=== PATIENT | female | born 1970 | race Caucasian/White ===

== ENCOUNTER → 2016-04-12 | Outpatient (CLI) | payer BC ==
[~2016-04-12] MED LIST: MULT-506 PO; NRT1/35 PO
== END | disposition home or self-care (01) ==
LOC: C.LABSPEC 18:15
PROVIDERS: ATTEND Obstetrics & Gynecology
DX: L29.8 Other pruritus (principal)

== ENCOUNTER → 2016-06-24 | Outpatient (CLI) | payer BC | END | disposition home or self-care (01) | LOC: C.PAPS 09:52 | PROVIDERS: ATTEND Physician Assistant | DX: Z01.419 Encounter for gynecological examination (general) (routine) without abnormal findings (principal) ==

== ENCOUNTER → 2016-09-03 | Outpatient (CLI) | payer BC | END | disposition home or self-care (01) | LOC: C.PATHSPEC 15:48 | PROVIDERS: ATTEND Obstetrics & Gynecology | DX: N92.0 Excessive and frequent menstruation with regular cycle (principal) ==

== ENCOUNTER → 2017-01-11 | Outpatient (CLI) | payer BC ==
--- NOTE | 2017-01-11 16:15 | DIAGNOSTIC IMAGING REPORT ---
R FINGER(S) MIN 2 VIEWS CLINICAL HISTORY: RIGHT 2ND FINGER PAIN S/P INJURY COMPARISON: None. FINDINGS: Note is made of an acute nondisplaced fracture within the lateral distal aspect of the proximal phalanx of the right second finger. No additional fractures are identified within the right second finger. There is soft tissue swelling at the level of the PIP joint of the second digit. IMPRESSION: Acute nondisplaced fracture within the lateral distal aspect of the proximal phalanx of the right second finger. Electronically signed by: Clement Amin M.D. 01/11/2017 4:14 PM Dictated Date/Time: 01/11/2017 4:11 PM
== END | disposition home or self-care (01) ==
LOC: C.RDSM 12:03
PROVIDERS: ATTEND Internal Medicine
DX: M79.646 Pain in unspecified finger(s) (principal); S62.640A Nondisplaced fracture of proximal phalanx of right index finger, initial encounter for closed fracture; X58.XXXA Exposure to other specified factors, initial encounter

== ENCOUNTER → 2017-01-25 | Outpatient (CLI) | payer BC ==
--- NOTE | 2017-01-25 16:48 | DIAGNOSTIC IMAGING REPORT ---
R FINGER(S) MIN 2 VIEWS CLINICAL HISTORY: RIGHT 2ND FINGER PAIN pain COMPARISON: 01/11/2017 DISCUSSION: Small avulsion distal aspect proximal phalanx right second finger. Alignment is anatomic. Mild soft tissue edema. No change from the prior exam. IMPRESSION: Small avulsion distal aspect proximal phalanx right second finger. No change compared to the prior study. The above report was generated using voice recognition software. It may contain grammatical, syntax or spelling errors. Electronically signed by: Reynold Giordano M.D. 01/25/2017 4:47 PM Dictated Date/Time: 01/25/2017 4:46 PM
== END | disposition home or self-care (01) ==
LOC: C.RDSM 16:15
PROVIDERS: ATTEND Internal Medicine
DX: S62.660A Nondisplaced fracture of distal phalanx of right index finger, initial encounter for closed fracture (principal); X58.XXXA Exposure to other specified factors, initial encounter

== ENCOUNTER 2017-04-13 18:37 | Emergency (ER) | payer BC ==
[~2017-04-13] VITALS: Ht 160 cm; Wt 84.5 kg
[2017-04-13 18:42] VITALS: Ht 160 cm; Wt 84.5 kg
[2017-04-13 19:20] VITALS: O2SAT 95
[2017-04-13 19:36] LABS: BASO % 0.3 %; BASO ABS # 0.02 K/uL (0-0.2); EOS % 2.1 %; EOS ABS # 0.15 K/uL (0-0.5); HEMATOCRIT 40.3 % (37-47); IG# 0.08 K/uL (0.00-0.02); LYMPH % 41.5 %; LYMPH ABS # 2.99 K/uL (1.2-3.4); MEAN CELL VOLUME 84.7 fL (80-100); MEAN CORPUSCULAR HEMOGLOBIN 29.4 pg (25-34); MEAN CORPUSCULAR HGB CONC 34.7 g/dl (32-36); MEAN PLATELET VOLUME 10.6 fL (7.4-10.4); MONO % 5.7 %; MONO ABS # 0.41 K/uL (0.11-0.59); NEUT % 49.3 %; NEUT ABS # 3.56 K/uL (1.4-6.5); PLATELET COUNT 234 K/uL (130-400); RED CELL DISTRIBUTION WIDTH CV 13.3 % (11.5-14.5); RED CELL DISTRIBUTION WIDTH SD 40.5 fL (36.4-46.3); WHITE BLOOD COUNT 7.21 K/uL (4.8-10.8)
[2017-04-13] MEDS ORDERED: IBUP-1050 PO (19:40)
[2017-04-13 19:52] LABS: ALBUMIN 4.1 gm/dl (3.4-5.0); ALT/SGPT 156 U/L (12-78); BLOOD UREA NITROGEN 14 mg/dl (7-18); CALCIUM 9.3 mg/dl (8.5-10.1); CARBON DIOXIDE 27 mmol/L (21-32); CREATININE 0.89 mg/dl (0.60-1.20); GLUCOSE 138 mg/dl (70-99); POTASSIUM 3.5 mmol/L (3.5-5.1); SODIUM 140 mmol/L (136-145)
--- NOTE | 2017-04-13 19:52 | EMERGENCY ROOM VISIT NOTE ---
History First contact with patient: 19:11 Chief Complaint: CHEST PAIN Stated Complaint: HEAVY CHEST PAIN IN SHOULDER AND ARM Nursing Triage Summary: Pt c/o mid upper chest pain "like someone is laying on it up into my neck and left arm. It's been on and off all day today" "I'll break out into a sweat and have a lot of shortness of breath." History of Present Illness The patient is a 46 year old female who presents to the Emergency Room with complaints of intermittent chest pain which started a few days ago. The patient stated that the pain is on the left seventh chest radiating to her jaw and left arm associated with shortness of breath. She also complains of palpitations but denies any dizziness or lightheadedness. She also has acid reflux is not currently on any medication. Denies any nausea, vomiting, epigastric pain that has been diaphoretic. Denies any long travels, history of smoking, recent immobilization, using estrogen supplements, calf swelling or tenderness. Denies any history of diabetes or hypertension. He denies any cough, fevers or chills. she has a family history of blood clots in her grandmother and heart disease in her mother at age 62. Denies any history of cancer . Source of History: patient Quality: ache Timing: intermittent Associated Symptoms: + diaphoresis, + chest pain, + SOB, No fevers, No chills, No nausea, No vomiting Review of Systems See above for pertinent positives & negatives. A total of 10 systems reviewed and were otherwise negative. Constitutional: No fever, No chills Respiratory: + shortness of breath, No cough Cardiovascular: + chest pain Abdomen: No pain, No nausea, No vomiting Musculoskeletal: No joint pain (review) Genitourinary - Female: No dysuria, No urinary frequency Neurologic: + memory loss Past Medical/Surgical History Surgical Problems: (1) H/O tubal ligation Family History FH: heart disease Social History Smoking Status: Never Smoker Marital Status: Occupation Status: employed Current/Historical Medications Scheduled PRN Ibuprofen (Advil), 400 MG PO Q6H PRN for Pain Physical Exam Vital Signs Date Time Temp Pulse Resp B/P (MAP) Pulse Ox O2 Delivery O2 Flow Rate FiO2 04/13/17 20:07 91 18 149/99 96 Room Air 04/13/17 19:23 91 2/14/18 19:20 98 20 165/114 95 Room Air 04/13/17 19:20 95 Room Air 04/13/17 18:46 98 Room Air 04/13/17 18:42 36.6 107 18 161/103 98 Room Air Physical Exam GENERAL: Patient is in no acute distress. HEENT: No acute trauma, normocephalic atraumatic, mucous membranes moist, no nasal congestion, no scleral icterus. NECK: No stridor, no adenopathy, no meningismus, trachea is midline. LUNGS: Clear to auscultation bilaterally, no wheeze, no rhonchi, breath sounds equal. HEART: Without murmurs gallops or rubs, regular rate and rhythm. ABDOMEN: Soft, nontender, bowel sounds positive, no hernias, no peritonitis. EXTREMITIES: No cyanosis or edema, full range of motion of all the joints without pain or difficulty, no signs for acute trauma. NEUROLOGIC: Oriented x 3, no acute motor or sensory deficits, no focal weakness. SKIN: No rash, no jaundice, no diaphoresis. Medical Decision & Procedures ER Provider Diagnostic Interpretation: CHEST ONE VIEW PORTABLE CLINICAL HISTORY: chest pain pain COMPARISON STUDY: 06/19/2012 FINDINGS: The bones soft tissues and hemidiaphragms are normal. The cardiomediastinal silhouette is normal. The lungs are clear. The pulmonary vasculature is normal. IMPRESSION: Negative chest. The above report was generated using voice recognition software. It may contain grammatical, syntax or spelling errors. Electronically signed by: Reynold Giordano M.D. 04/13/2017 7:51 PM Dictated Date/Time: 04/13/2017 7:50 PM Laboratory Results 04/13/17 19:21 Red Blood Count 4.76, Mean Corpuscular Volume 84.7, Mean Corpuscular Hemoglobin 29.4, Mean Corpuscular Hemoglobin Concent 34.7, Mean Platelet Volume 10.6, Neutrophils (%) (Auto) 49.3, Lymphocytes (%) (Auto) 41.5, Monocytes (%) (Auto) 5.7, Eosinophils (%) (Auto) 2.1, Basophils (%) (Auto) 0.3, Neutrophils # (Auto) 3.56, Lymphocytes # (Auto) 2.99, Monocytes # (Auto) 0.41, Eosinophils # (Auto) 0.15, Basophils # (Auto) 0.02 04/13/17 19:21 Test 04/13/17 19:21 04/13/17 19:35 White Blood Count 7.21 K/uL (4.8-10.8) Red Blood Count 4.76 M/uL (4.2-5.4) Hemoglobin 14.0 g/dL (12.0-16.0) Hematocrit 40.3 % (37-47) Mean Corpuscular Volume 84.7 fL (80-100) Mean Corpuscular Hemoglobin 29.4 pg (25-34) Mean Corpuscular Hemoglobin Concent 34.7 g/dl (32-36) Platelet Count 234 K/uL (130-400) Mean Platelet Volume 10.6 fL (7.4-10.4) Neutrophils (%) (Auto) 49.3 % Lymphocytes (%) (Auto) 41.5 % Monocytes (%) (Auto) 5.7 % Eosinophils (%) (Auto) 2.1 % Basophils (%) (Auto) 0.3 % Neutrophils # (Auto) 3.56 K/uL (1.4-6.5) Lymphocytes # (Auto) 2.99 K/uL (1.2-3.4) Monocytes # (Auto) 0.41 K/uL (0.11-0.59) Eosinophils # (Auto) 0.15 K/uL (0-0.5) Basophils # (Auto) 0.02 K/uL (0-0.2) RDW Standard Deviation 40.5 fL (36.4-46.3) RDW Coefficient of Variation 13.3 % (11.5-14.5) Immature Granulocyte % (Auto) 1.1 % Immature Granulocyte # (Auto) 0.08 K/uL (0.00-0.02) Anion Gap 10.0 mmol/L (3-11) Est Creatinine Clear Calc Drug Dose 79.6 ml/min Estimated GFR () 88.8 Estimated GFR (Non- 76.6 BUN/Creatinine Ratio 15.8 (10-20) Calcium Level 9.3 mg/dl (8.5-10.1) Total Bilirubin 0.8 mg/dl (0.2-1) Aspartate Amino Transf (AST/SGOT) 82 U/L (15-37) Alanine Aminotransferase (ALT/SGPT) 156 U/L (12-78) Alkaline Phosphatase 193 U/L (45-117) Troponin I < 0.015 ng/ml (0-0.045) Total Protein 7.8 gm/dl (6.4-8.2) Albumin 4.1 gm/dl (3.4-5.0) Globulin 3.7 gm/dl (2.5-4.0) Albumin/Globulin Ratio 1.1 (0.9-2) Thyroid Stimulating Hormone (TSH) 2.530 uIu/ml (0.300-4.500) Bedside D-Dimer 248 ng/mlFEU (0-450) ECG Per My Interpretation Indication: chest pain Rate (beats per minute): 93 Rhythm: sinus tachycardia Findings: other (nonspecific changes.) Medical Decision Prior records/ancillary studies reviewed. Triage Nursing notes reviewed. Additional history obtained from the patient. The patient's history was concerning for chest pain. Differential diagnosis: Etiologies such as cardiac ischemia, aortic dissection, pulmonary embolism, pneumonia, pneumothorax, musculoskeletal, infections, pericarditis, myocarditis , esophageal rupture, gastrointestinal, as well as others were entertained. Physical examination: As above. ER treatment provided: CBC, CMP, Troponin, D-dimer, CXR and EKG were ordered On reassessment the patient felt better. Diagnostic interpretation by me: The electrocardiogram was negative for pathologic change. The labs revealed mildly elevated AST, ALT and alk phos Imaging studies: Chest x-ray as above By the evaluation outlined above emergent etiologies such as cardiac ischemia, aortic dissection, pulmonary embolism, pneumonia, pneumothorax, infections, pericarditis, myocarditis, gastrointestinal, as well as others were deemed relatively unlikely. The patient was informed about the findings as listed above. All questions were answered and she was pleased with the treatment. Return instructions were outlined and the patient was discharged in stable condition. Referral: The patient was referred back to her primary care physician for follow-up in 2 to 3 days for a recheck of the current condition. 46-year-old female presented with intermittent chest pain associated shortness of breath and palpitations. She was evaluated in the ER for cardiac assessment , EKG revealed nonspecific ST-T wave changes with negative troponin. Labs were unremarkable except for mildly elevated liver enzymes. Chest x-ray was unremarkable. D-dimer was within normal range. Her HEART score was 3, risk of major adverse cardiac event is 0.9-1.7%, and Wells criteria is 1.5. She was discharged in stable condition and recommended to follow up with her family physician. She was advised to use [id number] acid reflux medications for GERD symptoms. Impression Primary Impression: Substernal precordial chest pain Departure Information Referrals Dennis Gregory M.D. (PCP) Patient Instructions My [facility] Resident Tracking Resident Involvement: Resident Care Provided Care Provided: Adult ED
[2017-04-13 20:03] LABS: ALKALINE PHOSPHATASE 193 U/L (45-117); AST/SGOT 82 U/L (15-37); TOTAL PROTEIN 7.8 gm/dl (6.4-8.2)
--- NOTE | 2017-04-13 21:40 | EMERGENCY ROOM VISIT NOTE ---
History Report prepared by Ray: Lia Salinas Under the Supervision of: Dr. Miguel Schmitt D.O. First contact with patient: 19:11 Chief Complaint: CHEST PAIN Stated Complaint: HEAVY CHEST PAIN IN SHOULDER AND ARM Nursing Triage Summary: Pt c/o mid upper chest pain "like someone is laying on it up into my neck and left arm. It's been on and off all day today" "I'll break out into a sweat and have a lot of shortness of breath." History of Present Illness The patient is a 46 year old female who presents to the Emergency Room with complaints of intermittent chest pain starting a couple days ago. The pain is on the left side radiating into her left arm and neck. She reports SOB and diaphoresis with the chest pain. She reports palpitations like her heart racing. She denies any nausea, vomiting, fever, chills, cough, dizziness, abdominal pain, or lightheadedness. She denies any recent immobilization, travel , or hormone usage. She has a family history of cancer, blood clots, and heart disease. She does not smoke. She denies any history of diabetes or hypertension. She has not had a period in 4 months. Source of History: patient Onset: couple days ago Position: chest (left) Quality: other (pain) Timing: intermittent Associated Symptoms: + diaphoresis, + neck pain, + SOB, No fevers, No chills , No cough, No nausea, No vomiting, No abdominal pain Review of Systems See HPI for pertinent positives & negatives. A total of 10 systems reviewed and were otherwise negative. Past Medical & Surgical Surgical Problems: (1) H/O tubal ligation Family History FH: heart disease Social History Smoking Status: Never Smoker Marital Status: Occupation Status: employed Current/Historical Medications Scheduled PRN Ibuprofen (Advil), 400 MG PO Q6H PRN for Pain Allergies Coded Allergies: No Known Allergies (Verified , 01/02/14) Physical Exam Vital Signs Date Time Temp Pulse Resp B/P (MAP) Pulse Ox O2 Delivery O2 Flow Rate FiO2 04/13/17 22:00 36.6 88 18 137/78 98 04/13/17 20:07 91 18 149/99 96 Room Air 04/13/17 19:23 91 04/13/17 19:20 98 20 165/114 95 Room Air 04/13/17 19:20 95 Room Air 2/14/18 18:46 98 Room Air 04/13/17 18:42 36.6 107 18 161/103 98 Room Air Physical Exam CONSTITUTIONAL/VITAL SIGNS: Reviewed / noted above. GENERAL: Non-toxic in appearance. INTEGUMENTARY: Warm, dry, and [place]. HEAD: Normocephalic. EYES: without scleral icterus or trauma. ENT/OROPHARYNX: clear and moist. LYMPHADENOPATHY/NECK: Is supple without lymphadenopathy or meningismus. RESPIRATORY: Lungs clear and equal. CARDIOVASCULAR: Regular rate and rhythm. GI/ABDOMEN: Soft and nontender. No organomegaly or pulsatile mass. No rebound or guarding. Normal bowel sounds. EXTREMITIES: Warm and well perfused. BACK: No CVA tenderness. NEUROLOGICAL: Intact without focal deficits. PSYCHIATRIC: normal affect. MUSCULOSKELETAL: Normally developed with good muscle tone. TRIAGE NURSING DOCUMENTATION REVIEWED. Medical Decision & Procedures ER Provider Diagnostic Interpretation: X ray results and stated below per my interpretation and radiology interpretation. CHEST ONE VIEW PORTABLE CLINICAL HISTORY: chest pain pain COMPARISON STUDY: 06/19/2012 FINDINGS: The bones soft tissues and hemidiaphragms are normal. The cardiomediastinal silhouette is normal. The lungs are clear. The pulmonary vasculature is normal. IMPRESSION: Negative chest. The above report was generated using voice recognition software. It may contain grammatical, syntax or spelling errors. Electronically signed by: Reynold Giordano M.D. 04/13/2017 7:51 PM Dictated Date/Time: 04/13/2017 7:50 PM Laboratory Results 04/13/17 19:21 Red Blood Count 4.76, Mean Corpuscular Volume 84.7, Mean Corpuscular Hemoglobin 29.4, Mean Corpuscular Hemoglobin Concent 34.7, Mean Platelet Volume 10.6, Neutrophils (%) (Auto) 49.3, Lymphocytes (%) (Auto) 41.5, Monocytes (%) (Auto) 5.7, Eosinophils (%) (Auto) 2.1, Basophils (%) (Auto) 0.3, Neutrophils # (Auto) 3.56, Lymphocytes # (Auto) 2.99, Monocytes # (Auto) 0.41, Eosinophils # (Auto) 0.15, Basophils # (Auto) 0.02 04/13/17 19:21 Test 04/13/17 19:21 04/13/17 19:35 White Blood Count 7.21 K/uL (4.8-10.8) Red Blood Count 4.76 M/uL (4.2-5.4) Hemoglobin 14.0 g/dL (12.0-16.0) Hematocrit 40.3 % (37-47) Mean Corpuscular Volume 84.7 fL (80-100) Mean Corpuscular Hemoglobin 29.4 pg (25-34) Mean Corpuscular Hemoglobin Concent 34.7 g/dl (32-36) Platelet Count 234 K/uL (130-400) Mean Platelet Volume 10.6 fL (7.4-10.4) Neutrophils (%) (Auto) 49.3 % Lymphocytes (%) (Auto) 41.5 % Monocytes (%) (Auto) 5.7 % Eosinophils (%) (Auto) 2.1 % Basophils (%) (Auto) 0.3 % Neutrophils # (Auto) 3.56 K/uL (1.4-6.5) Lymphocytes # (Auto) 2.99 K/uL (1.2-3.4) Monocytes # (Auto) 0.41 K/uL (0.11-0.59) Eosinophils # (Auto) 0.15 K/uL (0-0.5) Basophils # (Auto) 0.02 K/uL (0-0.2) RDW Standard Deviation 40.5 fL (36.4-46.3) RDW Coefficient of Variation 13.3 % (11.5-14.5) Immature Granulocyte % (Auto) 1.1 % Immature Granulocyte # (Auto) 0.08 K/uL (0.00-0.02) Anion Gap 10.0 mmol/L (3-11) Est Creatinine Clear Calc Drug Dose 79.6 ml/min Estimated GFR () 88.8 Estimated GFR (Non- 76.6 BUN/Creatinine Ratio 15.8 (10-20) Calcium Level 9.3 mg/dl (8.5-10.1) Total Bilirubin 0.8 mg/dl (0.2-1) Aspartate Amino Transf (AST/SGOT) 82 U/L (15-37) Alanine Aminotransferase (ALT/SGPT) 156 U/L (12-78) Alkaline Phosphatase 193 U/L (45-117) Troponin I < 0.015 ng/ml (0-0.045) Total Protein 7.8 gm/dl (6.4-8.2) Albumin 4.1 gm/dl (3.4-5.0) Globulin 3.7 gm/dl (2.5-4.0) Albumin/Globulin Ratio 1.1 (0.9-2) Thyroid Stimulating Hormone (TSH) 2.530 uIu/ml (0.300-4.500) Bedside D-Dimer 248 ng/mlFEU (0-450) Laboratory results as stated above per my review. ECG Per My Interpretation Indication: chest pain Rate (beats per minute): 93 Rhythm: normal sinus Findings: no ectopy, other (no ST elevation) ED Course 2118: Previous medical records were reviewed. The patient was evaluated in room B5. A complete history and physical examination was performed. I discussed the results and findings with the patient. She verbalized agreement of the treatment plan. She was discharged home. Medical Decision the differential was considered includes acute myocardial infarction, acute coronary syndrome, myocarditis, pericarditis, pericardial effusions /tamponade, esophageal perforation, thoracic aortic dissection, pulmonary embolism, pneumonia, pneumothorax, pancreatitis, shingles, acute cholecystitis, perforated abdominal viscus. This is a 46-year-old female who presents to the ED with a chief complaint of left-sided chest pain that radiates into her left shoulder. The patient states that she has had the symptoms for about 2 days. She reported some palpitations and sweating as well. She denies any personal DVT risk factors. The patient was seen with the resident. There was a family history of DVTs. The patient has an unremarkable exam. CBC is normal, EKG shows a normal sinus rhythm, complete metabolic panel was unremarkable with exception of a slight elevation of the AST, ALT and alkaline phosphatase. D-dimer was negative. Chest x-ray did not show acute process. The patient was told the results. She is felt to be stable for discharge and outpatient follow-up. Medication Reconcilliation Current Medication List: was personally reviewed by me Blood Pressure Screening Patient's blood pressure: Elevated blood pressure Blood pressure disposition: Referred to PCP Impression Primary Impression: Left sided chest pain Additional Impression: Left shoulder pain Scribe Attestation The scribe's documentation has been prepared under my direction and personally reviewed by me in its entirety. I confirm that the note above accurately reflects all work, treatment, procedures, and medical decision making performed by me. Departure Information Dispostion Home / Self-Care Referrals No Doctor, Assigned (PCP) Forms Call Back Authorization, HOME CARE DOCUMENTATION FORM, IMPORTANT VISIT INFORMATION Patient Instructions My [facility] Additional Instructions You have been examined and treated today on an emergency basis only. This is not a substitute for, or an effort to provide, complete comprehensive medical care. It is impossible to recognize and treat all injuries or illnesses in a single emergency department visit. It is therefore important that you follow up closely with your physician. Call as soon as possible for an appointment. Return for worsening symptoms or if you develop chest pain, difficulty breathing or any other concerning symptoms. - Please follow up with your PCP in the next few days - You may use OTC acid reflux medications for acid reflux symptoms Problem Qualifiers
[2017-04-13 22:00] VITALS: BP 137/78; PULSE 88; TEMP 36.6; O2SAT 98
== END 2017-04-13 22:01 | disposition home or self-care (01) ==
LOC: C.EDB 18:39
DX: R07.2 Precordial pain (principal); M25.512 Pain in left shoulder; K21.9 Gastro-esophageal reflux disease without esophagitis; Z98.51 Tubal ligation status

== ENCOUNTER → 2017-04-19 | Outpatient (CLI) | payer BC ==
[~2017-04-19] MED LIST changes: +IBUP-1050 PO; -MULT-506 PO; -NRT1/35 PO
[2017-04-19 14:12] LABS: HEP C IGG 13 YRS+OLDER_RFLX NEG (NEG)
[2017-04-19 14:54] LABS: ALBUMIN 4.1 gm/dl (3.4-5.0); ALT/SGPT 137 U/L (12-78); AST/SGOT 53 U/L (15-37); BLOOD UREA NITROGEN 24 mg/dl (7-18); CARBON DIOXIDE 29 mmol/L (21-32); CREATININE 0.77 mg/dl (0.60-1.20); GLUCOSE 143 mg/dl (70-99); POTASSIUM 3.8 mmol/L (3.5-5.1); SODIUM 138 mmol/L (136-145)
[2017-04-19 14:59] LABS: ALKALINE PHOSPHATASE 208 U/L (45-117); TOTAL PROTEIN 8.3 gm/dl (6.4-8.2); TRANSFERRIN 269 mg/dl (200-360)
[2017-04-20 15:03] LABS: ANA SCREEN TC 249X POSITIVE (NEGATIVE)
== END | disposition home or self-care (01) ==
LOC: C.LABBFT 09:10
PROVIDERS: ATTEND Nurse Practitioner
DX: R74.8 Abnormal levels of other serum enzymes (principal); I10 Essential (primary) hypertension

== ENCOUNTER → 2017-04-26 | Outpatient (CLI) | payer BC ==
--- NOTE | 2017-04-26 11:27 | DIAGNOSTIC IMAGING REPORT ---
(LIVER) ABDOMEN LIMITED HISTORY: 46 years-old Female ABNORMAL LIVER ENZYMES COMPARISON: CT abdomen and pelvis 10/11/2008 TECHNIQUE: Multiple real-time sonography images of the abdominal right upper quadrant were obtained assessing grayscale appearance, and color flow FINDINGS: The pancreas is not well seen secondary to obscuring bowel gas and patient body habitus. Imaged portions of the pancreas appear unremarkable. There is increased echogenicity with poor through transmission of the liver suggesting fatty infiltration. No focal hepatic mass lesions or intrahepatic biliary ductal dilation. Liver measures up to 16.7 cm in length. The gallbladder is unremarkable without cholelithiasis, wall thickening or pericholecystic fluid. Common bile duct is normal, 5 mm. The right kidney measures 12 cm in length and is within normal limits without hydronephrosis identified. IMPRESSION: 1. Hepatic steatosis. 2. No cholelithiasis or sonographic evidence of acute cholecystitis. 3. No biliary ductal dilation. The above report was generated using voice recognition software. It may contain grammatical, syntax or spelling errors. Electronically signed by: Mal Jeff M.D. 04/26/2017 11:26 AM Dictated Date/Time: 04/26/2017 11:23 AM
--- NOTE | 2017-04-26 11:30 | DIAGNOSTIC IMAGING REPORT ---
Thyroid ultrasonography CLINICAL HISTORY: Multinodular thyroid gland COMPARISON STUDY: March 2014 FINDINGS: The right lobe measures 40 x 13 x 12 mm. There is a mid pole hypoechoic nodule similar in size to the prior study measuring 11 x 8 x 5 mm. There is an adjacent hypoechoic upper pole nodule measuring 5 x 3 x 2 mm. The left lobe measures 44 x 20 x 15 mm. There is a circumscribed wider than tall isoechoic mid pole nodule measuring 31 x 22 x 13 mm. IMPRESSION: 1. Multinodular thyroid gland. Interval increase in the size of the 31 x 22 x 13 mm isoechoic mid pole left lobe nodule. If not previously biopsied, fine-needle aspiration should be considered in follow-up. Electronically signed by: Ramiro Cruz M.D. 04/26/2017 11:29 AM Dictated Date/Time: 04/26/2017 11:25 AM
== END | disposition home or self-care (01) ==
LOC: C.ULTR 09:41
PROVIDERS: ATTEND Nurse Practitioner
DX: R74.8 Abnormal levels of other serum enzymes (principal); E04.1 Nontoxic single thyroid nodule; K76.0 Fatty (change of) liver, not elsewhere classified

== ENCOUNTER → 2017-04-29 | Outpatient (CLI) | payer BC ==
[2017-04-29 15:37] LABS: BASO % 0.3 %; BASO ABS # 0.02 K/uL (0-0.2); EOS % 1.7 %; EOS ABS # 0.12 K/uL (0-0.5); HEMATOCRIT 39.7 % (37-47); HEMOGLOBIN 13.7 g/dL (12.0-16.0); IG# 0.04 K/uL (0.00-0.02); LYMPH % 37.5 %; LYMPH ABS # 2.57 K/uL (1.2-3.4); MEAN CELL VOLUME 84.6 fL (80-100); MEAN CORPUSCULAR HEMOGLOBIN 29.2 pg (25-34); MEAN CORPUSCULAR HGB CONC 34.5 g/dl (32-36); MEAN PLATELET VOLUME 11.4 fL (7.4-10.4); MONO % 5.8 %; NEUT % 54.1 %; NEUT ABS # 3.71 K/uL (1.4-6.5); PLATELET COUNT 283 K/uL (130-400); RED CELL DISTRIBUTION WIDTH CV 12.9 % (11.5-14.5); RED CELL DISTRIBUTION WIDTH SD 39.6 fL (36.4-46.3); WHITE BLOOD COUNT 6.86 K/uL (4.8-10.8)
[2017-04-29 16:07] LABS: ALT/SGPT 105 U/L (12-78); AST/SGOT 53 U/L (15-37); CREATININE 1.04 mg/dl (0.60-1.20)
[2017-04-29 16:14] LABS: ALKALINE PHOSPHATASE 196 U/L (45-117); TOTAL PROTEIN 8.1 gm/dl (6.4-8.2)
[2017-05-03 02:30] LABS: ANA SCREEN TC 249X POSITIVE (NEGATIVE); ANTI-SS-A <1.0 NEG AI (<1.0 NEG); ANTI-SS-B <1.0 NEG AI (<1.0 NEG); COMPLEMENT C3 TC 44859W 190 MG/DL (90-180); COMPLEMENT C4 TC 44982E 25 MG/DL (16-47)
== END | disposition home or self-care (01) ==
LOC: C.LAB1850 14:49
PROVIDERS: ATTEND Internal Medicine Rheumatology
DX: R76.8 Other specified abnormal immunological findings in serum (principal); R74.8 Abnormal levels of other serum enzymes

== ENCOUNTER → 2017-05-04 | Outpatient (CLI) | payer BC ==
[~2017-05-04] MED LIST changes: +OPTIRAY 320 IV PRN
--- NOTE | 2017-05-04 07:30 | DIAGNOSTIC IMAGING REPORT ---
CHEST CT WITH CONTRAST CT DOSE: 436.72 mGy.cm HISTORY: Acute atypical chest pain with shortness of breath R07.89 Atypical chest painR06.02 Shortness of [id number] TECHNIQUE: Multiaxial CT images of the chest were performed following the intravenous administration of contrast. A dose lowering technique was utilized adhering to the principles of ALARA. COMPARISON: Soft tissue neck CT 11/26/2014, chest radiograph 04/13/2017. FINDINGS: Heterogeneous thyroid with 1.4 cm solid nodule of the inferior left thyroid. No pathologic adenopathy about the chest identified. Calcified precarinal and bilateral hilar lymph nodes are noted. Heart is normal in size without pericardial effusion. There is no aortic aneurysm or dissection. The imaged great vessels appear to be patent. The opacified pulmonary arterial free is also unremarkable. There is no pneumothorax, pleural effusion or focal airspace consolidation. There are no suspicious pulmonary nodules or masses. Indeterminate 4 mm solid nodule of the right lower lobe, image 145 series 4. The central airways are patent. Hepatic steatosis. No acute abnormality of the imaged upper abdomen. Soft tissues are unremarkable. A few subcentimeter bone islands are noted within the midthoracic spine. The bones appear intact. Degenerative changes are seen within the bilateral sternoclavicular joints. IMPRESSION: 1. No acute intrathoracic abnormality identified. 2. Prior granulomatous disease. 3. 1.4 cm heterogeneous nodule of the left thyroid lobe. 4. 4 mm solid nodule of the right lower lobe. 5. Hepatic steatosis. Please refer to below summary of Fleischner criteria recommendations for follow-up of incidental CT nodules (Frank Puente, Guidelines for management of small pulmonary nodules detected on CT scans: A statement from the Fleischner Society, Radiology 237: [phone].) SOLID NODULES Solitary nodule size: <6 mm * Low risk patients: no follow-up needed * high risk patients: optional CT at 12 months Note: newly detected indeterminate nodule in persons 35 years of age or older. * Low risk patients: minimal or absent history of smoking and/or other known risk factors * high risk patients: history of smoking or of other known risk factors (e.g. first degree relative with lung cancer, or exposure to asbestos, radon, uranium) The above report was generated using voice recognition software. It may contain grammatical, syntax or spelling errors. Electronically signed by: Mal Jeff M.D. 05/04/2017 7:29 AM Dictated Date/Time: 05/04/2017 7:21 AM
== END | disposition home or self-care (01) ==
LOC: C.CTS 07:04
PROVIDERS: ATTEND Nurse Practitioner
DX: R07.89 Other chest pain (principal); R06.02 Shortness of breath

== ENCOUNTER → 2017-05-25 | Outpatient (CLI) | payer BC ==
[~2017-05-25] MED LIST changes: -OPTIRAY 320 IV PRN
[2017-05-25 19:37] LABS: BLOOD UREA NITROGEN 16 mg/dl (7-18); CALCIUM 9.4 mg/dl (8.5-10.1); CARBON DIOXIDE 32 mmol/L (21-32); CREATININE 0.77 mg/dl (0.60-1.20); GLUCOSE 162 mg/dl (70-99); POTASSIUM 2.9 mmol/L (3.5-5.1); SODIUM 135 mmol/L (136-145)
== END | disposition home or self-care (01) ==
LOC: C.LAB 18:13
PROVIDERS: ATTEND Nurse Practitioner
DX: E04.1 Nontoxic single thyroid nodule (principal); I10 Essential (primary) hypertension